=== PATIENT | female | born 1965 | race African-American/Black ===

== ENCOUNTER 2018-01-06 13:15 | Emergency (ER) | payer SELFPAY ==
[~2018-01-06] VITALS: Ht 167.6 cm; Wt 79.0 kg
[2018-01-06] MEDS ORDERED: LORAZEPAM 2MG/ML CPJ ONE (13:42)
[2018-01-06 14:23] LABS: CLARITY URINE CLEAR (CLEAR); COLOR URINE YELLOW (YELLOW); KETONES URINE NEGATIVE (NEGATIVE); LEUKOCYTE ESTERASE URINE NEGATIVE (NEGATIVE); NITRITE URINE NEGATIVE (NEGATIVE); OCCULT BLOOD URINE TRACE (NEGATIVE); PROTEIN URINE 1+ (NEGATIVE); SPECIFIC GRAVITY URINE 1.016 (1.005-1.030)
[2018-01-06 14:39] LABS: *AMPHETAMINES SCREEN URINE NEGATIVE (NEGATIVE); *BARBITURATES SCREEN URINE NEGATIVE (NEGATIVE); *BENZODIAZEPINES SCREEN URINE PRESUMTIVE POSITIVE (NEGATIVE); *COCAINE SCREEN URINE NEGATIVE (NEGATIVE); CANNABINOID URINE SCREEN PRESUMTIVE POSITIVE (NEGATIVE); METHADONE URINE SCREEN NEGATIVE (NEGATIVE); OPIATES URINE SCREEN NEGATIVE (NEGATIVE); PHENCYCLIDINE URINE SCREEN NEGATIVE (NEGATIVE)
[2018-01-06 14:46] LABS: BASOPHILS % 0.3 % (0.0-2.0); EOSINOPHILS % 0.7 % (0.0-5.0); HEMATOCRIT. 35.5 % (36.0-48.0); HEMOGLOBIN. 11.8 g/dL (12.0-16.0); LYMPHOCYTES % 19.2 % (20.0-50.0); MEAN CORPUSCULAR HEMOGLOBIN 29.3 pg (28.0-32.0); MEAN CORPUSCULAR VOLUME 88.2 fL (81.0-99.0); MEAN PLATELET VOLUME 8.8 fl (7.4-10.4); MONOCYTES % 4.7 % (2.0-8.0); NEUTROPHILS % 75.1 % (40.0-76.0); PLATELET 340 x1000/uL (130-400); RED BLOOD CELL COUNT 4.03 mill/uL (4.2-5.4); RED CELL DISTRIBUTION WIDTH 13.4 % (11.6-14.6)
[2018-01-06 14:48] LABS: CHLORIDE 106 mEq/L (98-107)
[2018-01-06 14:54] LABS: HCG SCREEN NEGATIVE
[2018-01-06 14:58] LABS: CARBAMAZEPINE < 0.5 ug/mL (4-12); PHENOBARBITAL < 2.1 ug/mL (15.0-40.0); VALPROIC ACID < 3.0 ug/mL (50-100)
[2018-01-06] MEDS ORDERED: LEVETIRACETAM 500MG PREMIX 100 ML IV ONE (15:15)
[2018-01-06] MEDS ORDERED: DEXAMETHASONE 10 MG/ML VIAL IV ONE (15:15)
[2018-01-06] MEDS ORDERED: NICARDIPINE 40MG/200ML PREMIX 200 ML IV PRN (15:30)
[2018-01-06] MEDS ORDERED: VANCOMYCIN 1,500 MG in DEXT 5% WATER 250 ML IV SCH (15:30)
[2018-01-06] MEDS ORDERED: MANNITOL 20% (20GM/100ML) BAG 500ML PREMIX IV NR (15:35)
[2018-01-06] MEDS ORDERED: IOHEXOL-350 100 ML BOTTLE ONE (15:38)
[2018-01-06] MEDS ORDERED: PROPOFOL 10MG/ML 100ML 100 ML IV SCH ×2 (15:45→17:45)
[2018-01-06] MEDS ORDERED: SODIUM CHLORIDE 0.9% 1,000 ML IV NR (15:45)
[2018-01-06 16:13] LABS: BG BASE EXCESS -8.2 mmol/L (-2.0-2.0); BG CARBOXYHEMOGLOBIN 0.2 % (0.5-1.5); BG DEOXYHEMOGLOBIN 7.1 % (0.0-5.0); BG FRACTION INSPIRED OXYGEN 100; BG METHEMOGLOBIN 0.1 % (0.0-1.5); BG OXYGEN SATURATION 92.9 % (92.0-98.5); BG OXYHEMOGLOBIN 92.6 % (94.0-97.0); BG PH 7.396 (7.350-7.450); BG PO2 69.9 mmHg (75.0-100.0); BG SAMPLE SITE RIGHT RADIAL; BG TIDAL VOLUME(mL) 600 mL; BG VENT MODE VENT - A/C; BG VENT RATE 16 set
[2018-01-06 17:10] VITALS: BP 134/89
[2018-01-06] MEDS ORDERED: PIPERACILLIN SODIUM/TAZOBACTAM 4.5 G in DEXT 5% WATER 100 ML IV NR (17:30)
[2018-01-06] MEDS ORDERED: PROPOFOL 10MG/ML 100ML 100 ML IV ONE (17:48)
== END 2018-01-06 17:46 | disposition short-term general hospital (02) ==
LOC: ER 13:48
DX: I60.01 Nontraumatic subarachnoid hemorrhage from right carotid siphon and bifurcation (principal); G40.909 Epilepsy, unspecified, not intractable, without status epilepticus; I10 Essential (primary) hypertension
CPT/HCPCS: 31500; 36415; 36600; 70450; 70496; 80053; 80156; 80165; 80184; 80185; 80305; 81003; 82375; 82805; 82962; 83605; 84703; 85025; 87040; 93005; 96365; 96375; 99291; J1100; J1953; J2060; J2543; J2704; J3370; Q9967; Z7610; J3490; J7060; A4315